=== PATIENT | male | born 1990 | race Hispanic/Latino ===

== ENCOUNTER 2016-11-17 21:18 | Inpatient (IN) | payer OTHER ==
[2016-11-17] MEDS ORDERED: PEPCID PO ONE (22:16)
[2016-11-17] MEDS ORDERED: BENADRYL PO ONE (22:16)
[2016-11-17] MEDS ORDERED: DELTASONE PO ONE (22:16)
[2016-11-17 22:42] LABS: Hematocrit 46.1 % (35.5-45.6); Hemoglobin 15.9 gm/dl (11.8-15.2); Mean Corpuscular HGB Conc 35 % (32-34); Mean Corpuscular Hemoglobin 30 pg (28-32); Mean Corpuscular Volume 86 fl (84-94); Platelet Count 321 K/mm3 (140-440); Red Cell Distribution Width 13.3 % (13.2-15.2); White Blood Count 12.3 K/mm3 (4.5-11.0)
[2016-11-17 22:58] LABS: Alanine Aminotransferase 22 units/L (7-56); Albumin 4.6 g/dL (3.9-5); Albumin/Globulin Ratio 1.6 %; Alkaline Phosphatase 65 units/L (35-129); Anion Gap 17 mmol/L; BUN/Creatinine Ratio 11.11; Blood Urea Nitrogen 10 mg/dL (9-20); Calcium 9.2 mg/dL (8.4-10.2); Carbon Dioxide 25 mmol/L (22-30); Chloride 100.8 mmol/L (98-107); Glucose 97 mg/dL (75-100); Potassium 3.8 mmol/L (3.6-5.0); Sodium 139 mmol/L (137-145); Total Protein 7.4 g/dL (6.3-8.2)
[2016-11-17 23:08] LABS: Erythrocyte Sedimentation Rate 2 mm/Hr (0-20)
[2016-11-18] MEDS ORDERED: TORADOL IV ONE (02:26)
[2016-11-18] MEDS ORDERED: NACL 0.9% 1000 ML 1,000 ML IV ONE (02:26)
[2016-11-18] MEDS ORDERED: CLEOCIN 900 MG/50 mL 900 MG/50 ML BAG IV ONE ×2 (02:27→04:55)
--- NOTE | 2016-11-18 03:58 | Emergency Department Report ---
ED General Adult HPI - General Chief complaint: Skin Rash Stated complaint: BUG BITE, CHEST TIGHTNESS Time Seen by Provider: 11/18/16 03:50 Source: patient Mode of arrival: Ambulatory Limitations: No Limitations - History of Present Illness Onset/Timin -: Sudden, days(s) Location: upper extremity Radiation: proximal Severity scale (0 -10): 3 Quality: burning, sharp Consistency: intermittent Improves with: none Worsens with: movement Associated Symptoms: fever/chills, malaise, rash. denies: confusion, cough, headaches, loss of appetite, nausea/vomiting, shortness of breath, syncope, weakness Treatments Prior to Arrival: none - Related Data Previous Rx's Medication Instructions Recorded Last Taken Type Clindamycin [Clindamycin CAP] 300 mg PO Q6H #40 capsule 11/18/16 Unknown Rx Metoclopramide [Reglan] 10 mg PO ACHS #28 tablet 11/18/16 Unknown Rx Naproxen [Naprosyn TAB] 500 mg PO BID PRN #60 tablet 11/18/16 Unknown Rx diphenhydrAMINE [Benadryl CAP] 25 mg PO Q6HR PRN #30 capsule 11/18/16 Unknown Rx predniSONE [Deltasone] 40 mg PO QDAY #5 tab 11/18/16 Unknown Rx Allergies Allergy/AdvReac Type Severity Reaction Status Date / Time codeine AdvReac Itching Verified 11/17/16 22:10 ED Review of Systems ROS: Stated complaint: BUG BITE, CHEST TIGHTNESS Other details as noted in HPI Constitutional: denies: chills, fever Eyes: denies: eye pain, eye discharge, vision change ENT: denies: ear pain, throat pain Respiratory: denies: cough, shortness of breath, wheezing Cardiovascular: denies: chest pain, palpitations Endocrine: no symptoms reported Gastrointestinal: denies: abdominal pain, nausea, diarrhea Genitourinary: denies: urgency, dysuria Musculoskeletal: denies: back pain, joint swelling, arthralgia Skin: rash (left forearm and upper arm ), pruritus. denies: change in color, change in hair/nails Neurological: denies: headache, weakness, paresthesias Psychiatric: denies: anxiety, depression Hematological/Lymphatic: denies: easy bleeding, easy bruising ED Past Medical Hx - Social History Smoking Status: Current Every Day Smoker Substance Use Type: None - Medications Home Medications: Home Medications Medication Instructions Recorded Confirmed Last Taken Type Clindamycin [Clindamycin CAP] 300 mg PO Q6H #40 capsule 11/18/16 Unknown Rx Metoclopramide [Reglan] 10 mg PO ACHS #28 tablet 11/18/16 Unknown Rx Naproxen [Naprosyn TAB] 500 mg PO BID PRN #60 tablet 11/18/16 Unknown Rx diphenhydrAMINE [Benadryl CAP] 25 mg PO Q6HR PRN #30 capsule 11/18/16 Unknown Rx predniSONE [Deltasone] 40 mg PO QDAY #5 tab 11/18/16 Unknown Rx ED Physical Exam - General Limitations: No Limitations General appearance: alert, in no apparent distress - Head Head exam: Present: atraumatic, normocephalic - Eye Eye exam: Present: normal appearance, PERRL, EOMI - ENT ENT exam: Present: mucous membranes moist - Neck Neck exam: Present: normal inspection - Respiratory Respiratory exam: Present: normal lung sounds bilaterally. Absent: respiratory distress - Cardiovascular Cardiovascular Exam: Present: regular rate, normal rhythm. Absent: systolic murmur, diastolic murmur, rubs, gallop - GI/Abdominal GI/Abdominal exam: Present: soft, normal bowel sounds - Rectal Rectal exam: Present: deferred - Expanded Upper Extremity Exam Left Shoulder Exam: Present: normal inspection Upper Arm exam: Present: full ROM, tenderness, erythema, other (rash erythema warm to touch). Absent: swelling, abrasion, laceration, ecchymosis, deformity Forearm Wrist exam: Present: full ROM, tenderness, erythema. Absent: swelling, abrasion, laceration, ecchymosis, deformity, crepidus, dislocation, tenderness over anatomical snuff box, pain with axial thumb loading Hand Wrist exam: Present: normal inspection, full ROM. Absent: tenderness, swelling, abrasion, laceration, ecchymosis, deformity, crepidus, dislocation, erythema, amputation, nail avulsion, subungual hematoma Neuro motor exam: Present: wrist extension intact, thumb opposition intact, thumb IP flexion intact, thumb adduction intact, fingers 2-5 abduction intact Neurosensory exam: Present: 2-point discrimination, radial nerve intact, ulnar nerve intact, median nerve intact Vascular: Present: Pallo, normal capillary refill, radial pulse, brachial pulse , ulnar pulse. Absent: vascular compromise, pulse deficit radial art, pulse deficit ulnar art, pulse deficit brachial art - Back Exam Back exam: Present: normal inspection - Neurological Exam Neurological exam: Present: alert, oriented X3 - Psychiatric Psychiatric exam: Present: normal affect, normal mood - Skin Skin exam: Present: warm, dry, rash, erythema, urticaria - Expanded Skin Exam Expanded Type of lesion: Present: rash Distribution of rash: LUE Description of rash: Present: size (2x6 cm irrregular), tenderness, erythematous. Absent: swelling, crusting, discharge, fluctuant, indurated ED Course Vital Signs 11/17/16 22:04 Temperature 98.2 F Pulse Rate 99 H Respiratory 18 Rate Blood Pressure 155/95 O2 Sat by Pulse 100 Oximetry ED Medical Decision Making - Lab Data Result diagrams: 11/17/16 22:19 11/17/16 22:19 Laboratory Tests 11/17/16 11/17/16 11/17/16 22:19 22:19 22:19 WBC 12.3 H RBC 5.40 H Hgb 15.9 H Hct 46.1 H MCV 86 MCH 30 MCHC 35 H RDW 13.3 Plt Count 321 ESR 2 Sodium 139 Potassium 3.8 Chloride 100.8 Carbon Dioxide 25 Anion Gap 17 BUN 10 Creatinine 0.9 Estimated GFR > 60 BUN/Creatinine Ratio 11.11 Glucose 97 Lactic Acid 1.00 Calcium 9.2 Total Bilirubin 0.50 AST 18 ALT 22 Alkaline Phosphatase 65 C-Reactive Protein 0.20 Total Protein 7.4 Albumin 4.6 Albumin/Globulin Ratio 1.6 - EKG Data EKG shows normal: sinus rhythm Rate: normal - EKG Data When compared to previous EKG there are: no significant change Interpretation: no acute changes - Medical Decision Making pt is a 26 y/o male who presents s/p spider bite to left forearm 3 days ago pt now complains of pain and erythema to same exam left f/o erythema warm to touch streaking is noted non weeping raised smooth , no abscess no fluctuance, rom intact no weakness no paresthesia labs noted : lactic acid 1.0, CRP 0.2, Sed rate: 2 WBC: 12.3 pt tx with clindamycin ivpb , steriods , benadryl , reglan, plan given sed rate, drp, lactic, mild wbc elevation , normal V/S will treat for infected spider bite / cellulitis, clindamycin, Benadryl , Reglan, prednisone. pt given strict instructions to return to clinic if symptoms worsen pt verbalized agreement and understanding of same. Critical care attestation.: If time is entered above; I have spent that time in minutes in the direct care of this critically ill patient, excluding procedure time. ED Disposition Clinical Impression: Infected insect bite Qualifiers: Encounter type: initial encounter Qualified Code(s): W57.XXXA - Bitten or stung by nonvenomous insect and other nonvenomous arthropods, initial encounter Disposition: TO HOME OR SELFCARE Is pt being admited?: No Does the pt Need Aspirin: No Condition: Good Instructions: Cellulitis (ED), Contact Dermatitis (ED) Prescriptions: Clindamycin [Clindamycin CAP] 300 mg PO Q6H #40 capsule diphenhydrAMINE [Benadryl CAP] 25 mg PO Q6HR PRN #30 capsule PRN Reason: Itching Metoclopramide [Reglan] 10 mg PO ACHS #28 tablet Naproxen [Naprosyn TAB] 500 mg PO BID PRN #60 tablet PRN Reason: Pain predniSONE [Deltasone] 40 mg PO QDAY #5 tab Referrals: PRIMARY CARE,MD [Primary Care Provider] - 3-5 Days Forms: Work/School Release Form(ED) Time of Disposition: 04:19
--- NOTE | 2016-11-18 04:34 | Emergency Department Report ---
- General Chief complaint: Skin Rash Stated complaint: BUG BITE, CHEST TIGHTNESS Time Seen by Provider: 11/18/16 03:50 Source: patient Mode of arrival: Ambulatory Limitations: No Limitations - History of Present Illness MD complaint: rash Onset/Timin -: Sudden, days(s) Tetanus Up to Date: yes Location: LUE Severity scale (0 -10): 5 Quality: burning, aching, sharp Consistency: constant Improves with: none Worsens with: palpation, movement Context: other ("I think I bite by spider") Associated symptoms: fever, chills, itching - Related Data Allergies Allergy/AdvReac Type Severity Reaction Status Date / Time codeine AdvReac Itching Verified 11/17/16 22:10 Abscess Boil HPI - HPI Chief Complaint: Skin Rash Stated Complaint: BUG BITE, CHEST TIGHTNESS Time Seen by Provider: 11/18/16 03:50 Duration: 2 Days Location: Upper Extremity Severity: Moderate History: Yes Fever, Yes Pain, Yes Insect Bite, No Purulent Drainage, No Numbness , No Foreign Body, No Previous History Allergies/Adverse Reactions: Allergies Allergy/AdvReac Type Severity Reaction Status Date / Time codeine AdvReac Itching Verified 11/17/16 22:10 ED Review of Systems ROS: Stated complaint: BUG BITE, CHEST TIGHTNESS Other details as noted in HPI Constitutional: denies: chills, fever Eyes: denies: eye pain, eye discharge, vision change ENT: denies: ear pain, throat pain Respiratory: denies: cough, shortness of breath, wheezing Cardiovascular: denies: chest pain, palpitations Endocrine: no symptoms reported Gastrointestinal: denies: abdominal pain, nausea, diarrhea Genitourinary: denies: urgency, dysuria Musculoskeletal: denies: back pain, joint swelling, arthralgia Skin: rash (left forearm and upper arm ), pruritus. denies: change in color, change in hair/nails Neurological: denies: headache, weakness, paresthesias Psychiatric: denies: anxiety, depression Hematological/Lymphatic: denies: easy bleeding, easy bruising ED Past Medical Hx - Social History Smoking Status: Current Every Day Smoker Substance Use Type: None ED Physical Exam - General Limitations: No Limitations General appearance: alert, in no apparent distress - Head Head exam: Present: atraumatic, normocephalic - Eye Eye exam: Present: normal appearance - ENT ENT exam: Present: mucous membranes moist - Neck Neck exam: Present: normal inspection - Respiratory Respiratory exam: Present: normal lung sounds bilaterally. Absent: respiratory distress - Cardiovascular Cardiovascular Exam: Present: regular rate, normal rhythm. Absent: systolic murmur, diastolic murmur, rubs, gallop - GI/Abdominal GI/Abdominal exam: Present: soft, normal bowel sounds - Rectal Rectal exam: Present: deferred - Extremities Exam Extremities exam: Present: normal inspection, full ROM, tenderness, normal capillary refill. Absent: pedal edema, joint swelling, calf tenderness - Expanded Upper Extremity Exam Left Shoulder Exam: Present: normal inspection Upper Arm exam: Present: full ROM, tenderness, swelling, erythema. Absent: abrasion, laceration, ecchymosis, deformity, crepidus, dislocation Elbow exam: Present: normal inspection Forearm Wrist exam: Present: tenderness, swelling, erythema. Absent: abrasion, laceration, deformity, crepidus, dislocation, tenderness over anatomical snuff box, pain with axial thumb loading Neuro motor exam: Present: wrist extension intact, thumb opposition intact, thumb IP flexion intact, thumb adduction intact, fingers 2-5 abduction intact Neurosensory exam: Present: 2-point discrimination, radial nerve intact, ulnar nerve intact, median nerve intact Vascular: Present: normal capillary refill, radial pulse, brachial pulse, ulnar pulse. Absent: vascular compromise, pulse deficit radial art, pulse deficit ulnar art, pulse deficit brachial art - Back Exam Back exam: Present: normal inspection, full ROM. Absent: tenderness - Neurological Exam Neurological exam: Present: alert, oriented X3, CN II-XII intact, normal gait, reflexes normal. Absent: motor sensory deficit - Psychiatric Psychiatric exam: Present: normal affect, normal mood - Skin Skin exam: Present: warm, dry, intact, normal color. Absent: rash ED Course Vital Signs 11/17/16 22:04 Temperature 98.2 F Pulse Rate 99 H Respiratory 18 Rate Blood Pressure 155/95 O2 Sat by Pulse 100 Oximetry ED Medical Decision Making - Lab Data Result diagrams: 11/17/16 22:19 11/17/16 22:19 Laboratory Tests 11/17/16 11/17/16 11/17/16 22:19 22:19 22:19 WBC 12.3 H RBC 5.40 H Hgb 15.9 H Hct 46.1 H MCV 86 MCH 30 MCHC 35 H RDW 13.3 Plt Count 321 ESR 2 Sodium 139 Potassium 3.8 Chloride 100.8 Carbon Dioxide 25 Anion Gap 17 BUN 10 Creatinine 0.9 Estimated GFR > 60 BUN/Creatinine Ratio 11.11 Glucose 97 Lactic Acid 1.00 Calcium 9.2 Total Bilirubin 0.50 AST 18 ALT 22 Alkaline Phosphatase 65 C-Reactive Protein 0.20 Total Protein 7.4 Albumin 4.6 Albumin/Globulin Ratio 1.6 11/18/16 11/18/16 11/18/16 03:01 03:01 03:01 WBC RBC Hgb Hct MCV MCH MCHC RDW Plt Count ESR 3 Sodium Potassium Chloride Carbon Dioxide Anion Gap BUN Creatinine Estimated GFR BUN/Creatinine Ratio Glucose Lactic Acid 2.60 H* Calcium Total Bilirubin AST ALT Alkaline Phosphatase C-Reactive Protein 0.20 Total Protein Albumin Albumin/Globulin Ratio - EKG Data EKG shows normal: sinus rhythm Rate: normal - EKG Data When compared to previous EKG there are: no significant change - Medical Decision Making pt endorse insect bite to left forearm 3 days ago present complaining of pain 5/ 10 fever itching swelling , puilses intact [employer]<3 sec bilat no crepitus rom intact, labs noted initial lactic acid 1.0 repeat 2.6 , consulted ED attending .plan admit to medicine Dx: Dottietis left forearm , pt handoff report to Dr. Hargrove , Admit to Med/Surg Dx Left Forearm Cellulitis , Clindamycin 900 mg ivbp q 8 hrs. dicussed same with patient , patient verbalized understanding and agreement with same. Critical care attestation.: If time is entered above; I have spent that time in minutes in the direct care of this critically ill patient, excluding procedure time. ED Disposition Clinical Impression: Cellulitis of left forearm Disposition: DC-01 TO HOME OR SELFCARE Is pt being admited?: Yes Does the pt Need Aspirin: No Condition: Good Instructions: Contact Dermatitis (ED), Cellulitis (ED) Time of Disposition: 04:47 (Admit DX Cellulitis Christopher Hargrove)
[2016-11-18] MEDS ORDERED: NACL 0.9% 1000 ML 1,000 ML IV SCH (07:00)
[2016-11-18] MEDS: CLEOCIN 900 MG/50 mL 900 MG/50 ML BAG IV SCH ×2 (10:17→14:16)
--- NOTE | 2016-11-18 11:16 | History and Physical Report ---
History of Present Illness Date of examination: 11/18/16 Date of admission: 11/18/16 04:47 Chief complaint: Left Arm bug bite History of present illness: A 26-year-old male presented to the ED with complaint of left arm swelling, redness, hot burning from a spider bite and chest tightness. Patient denies fever, nausea, vomiting, chest pains, abdominal pain. Patient reported bug bite to the left arm 3 days ago and the swelling, redness and pain of 6 out of 10 on scale 0/10 worsen yesterday and decided to come to the ER for treatment. Patient denies significant past medical history, except for smoking , alcohol and marijuana use. Patient also denied any surgeries. Past History Past Medical History: No medical history Past Surgical History: No surgical history Social history: , lives with family, smoking (1 pk per day), alcohol abuse (Whisky, every other day), full code, other (Marijuana on occasion). denies: prescription drug abuse, IV drug use Family history: cancer, hypertension, stroke Medications and Allergies Allergies Allergy/AdvReac Type Severity Reaction Status Date / Time codeine AdvReac Itching Verified 11/17/16 22:10 Active Meds: Active Medications Enoxaparin Sodium (Lovenox) 40 mg SUB-Q QDAY@2200 [facility] Clindamycin HCl (Cleocin 900 Mg/50 Ml) 900 mg in 50 mls @ 100 mls/hr IV Q8HR [facility] PRN Reason: Protocol Stop: 11/21/16 10:00 Last Admin: 11/18/16 10:17 Dose: 100 mls/hr Sodium Chloride (Nacl 0.9% 1000 Ml) 1,000 mls @ 150 mls/hr IV DIRECT [facility] Last Admin: 11/18/16 07:12 Dose: 150 mls/hr Review of Systems Constitutional: no weight loss, no weight gain, no chills, no fatigue Ears, nose, mouth and throat: no nasal congestion, no sinus pressure Cardiovascular: other (Chest tightness), no chest pain, no palpitations, no syncope Respiratory: no shortness of breath, no dyspnea on exertion, no congestion Gastrointestinal: no abdominal pain, no nausea, no vomiting, no diarrhea, no constipation Genitourinary Male: no dysuria, no hematuria Rectal: no incontinence Musculoskeletal: no low back pain, no muscle weakness, no muscle cramps Integumentary: redness, other (swelling to the left arm) Neurological: no head injury, no seizures, no syncope, no headaches Psychiatric: no anxiety, no suicidal ideation, no depression Endocrine: no fatigue Exam - Constitutional Vitals: Temp Pulse Resp BP Pulse Ox 98.6 F 81 20 148/87 99 11/18/16 08:00 11/18/16 08:00 11/18/16 08:00 11/18/16 08:00 11/18/16 08:00 General appearance: Present: no acute distress, well-nourished - EENT Eyes: Present: PERRL ENT: hearing intact, clear oral mucosa - Neck Neck: Present: supple, normal ROM - Respiratory Respiratory effort: normal Respiratory: bilateral: CTA - Cardiovascular Heart rate: 110 Rhythm: regular Heart Sounds: Present: S1 & S2. Absent: rub, click - Extremities Extremities: pulses symmetrical, No edema Peripheral Pulses: within normal limits - Abdominal General gastrointestinal: Present: soft, non-tender, non-distended, normal bowel sounds Male genitourinary: Present: normal - Integumentary Integumentary: Present: clear, erythema (Lower left arm) - Musculoskeletal Musculoskeletal: gait normal, strength equal bilaterally - Psychiatric Psychiatric: appropriate mood/affect, intact judgment & insight - Neurologic Neurologic: CNII-XII intact, moves all extremities - Allied Health Allied health notes reviewed: nursing Results - Labs CBC & Chem 7: 11/17/16 22:19 11/17/16 22:19 Labs: Laboratory Last Values WBC 12.3 K/mm3 (4.5-11.0) H 11/17/16 22:19 RBC 5.40 M/mm3 (3.65-5.03) H 11/17/16 22:19 Hgb 15.9 gm/dl (11.8-15.2) H 11/17/16 22:19 Hct 46.1 % (35.5-45.6) H 11/17/16 22:19 MCV 86 fl (84-94) 11/17/16 22:19 MCH 30 pg (28-32) 11/17/16 22:19 MCHC 35 % (32-34) H 11/17/16 22:19 RDW 13.3 % (13.2-15.2) 11/17/16 22:19 Plt Count 321 K/mm3 (140-440) 11/17/16 22:19 ESR 3 mm/Hr (0-20) 11/18/16 03:01 Sodium 139 mmol/L (137-145) 11/17/16 22:19 Potassium 3.8 mmol/L (3.6-5.0) 11/17/16 22:19 Chloride 100.8 mmol/L (98-107) 11/17/16 22:19 Carbon Dioxide 25 mmol/L (22-30) 11/17/16 22:19 Anion Gap 17 mmol/L 11/17/16 22:19 BUN 10 mg/dL (9-20) 11/17/16 22:19 Creatinine 0.9 mg/dL (0.8-1.5) 11/17/16 22:19 Estimated GFR > 60 ml/min 11/17/16 22:19 BUN/Creatinine Ratio 11.11 % 11/17/16 22:19 Glucose 97 mg/dL (75-100) 11/17/16 22:19 Lactic Acid 2.60 mmol/L (0.7-2.0) H* 11/18/16 03:01 Calcium 9.2 mg/dL (8.4-10.2) 11/17/16 22:19 Total Bilirubin 0.50 mg/dL (0.1-1.2) 11/17/16 22:19 AST 18 units/L (5-40) 11/17/16 22:19 ALT 22 units/L (7-56) 11/17/16 22:19 Alkaline Phosphatase 65 units/L (35-129) 11/17/16 22:19 C-Reactive Protein 0.20 mg/dL (0.00-1.30) 11/18/16 03:01 Total Protein 7.4 g/dL (6.3-8.2) 11/17/16 22:19 Albumin 4.6 g/dL (3.9-5) 11/17/16 22:19 Albumin/Globulin Ratio 1.6 % 11/17/16 22:19 Assessment and Plan Assessment and plan: A 26-year-old male presented to the ED with complaint of left arm swelling, redness, hot from a spider bite and chest tightness. Patient denies fever, nausea, vomiting, chest pains, abdominal pain. Patient reported bug bite to the left arm 3 days ago and the swelling, redness and pain worsen yesterday and decided to come to the ER for treatment. Patient denies significant past medical history, except for smoking, alcohol and marijuana use. Patient also denied any surgeries. On exam patient is alert oriented 3, verbalized he is feeling better and wants to go home if possible to be discharged today on oral antibiotics. Patient remained sinus tach heart rate 100-117. Positive lateral radial pulses noted and bilateral positive pedal pulses noted. Sepsis 2/2 cellulitis - lukocytosis and tachycardia - Will manage according to sepsis protocol using IV antibiotics and fluid - Bllod culture pending -Cellulitis to the left arm-due to spider bite- antibiotics , IV fluids -Leukocytosis-due to infectious process-treating underlying cause patient on antibiotics -DVT prophylaxis-SCDs ordered Advance Directives: No (Full Code) VTE prophylaxis?: Mechanical (Pt ambulatory) Plan of care discussed with patient/family: Yes
[2016-11-18 16:05] VITALS: BP 129/87
[2016-11-18] MEDS ORDERED: LOVENOX SUB-Q SCH (22:00)
--- NOTE | 2016-11-19 13:46 | Discharge Summary ---
Providers - Providers Date of Admission: 11/18/16 04:47 Date of discharge: 11/19/16 Attending physician: MOLINA DANG MD Primary care physician: WALL ATTENDANT Hospitalization Reason for admission: Sepsis, cellulitis secondary to insect bite Condition: Good Hospital course: A 26-year-old male presented to the ED with complaint of left arm swelling, redness, hot burning from a spider bite and chest tightness. Patient denies fever, nausea, vomiting, chest pains, abdominal pain. Patient reported bug bite to the left arm 3 days ago and the swelling, redness and pain of 6 out of 10 on scale 0/10 worsen yesterday and decided to come to the ER for treatment. Patient denies significant past medical history, except for smoking , alcohol and marijuana use. Patient also denied any surgeries. Patient was admitted to the floor because of management of sepsis, cellulitis secondary to insect bite. The patient was started on IV clindamycin. When I evaluated the patient after I discussed with the importance of being admitted and managed he agreed to stay in the hospital but later he signed AMA and went home. Disposition: DC-07 LEFT AGAINST MED ADVICE Time spent for discharge: 25 minutes Core Measure Documentation - Palliative Care Palliative Care/ Comfort Measures: Not Applicable - Core Measures Any of the following diagnoses?: none Exam - Physical Exam Narrative exam: I didn't examine him at the time of discharge. - Constitutional Vitals: Temp Pulse Resp BP Pulse Ox 98.7 F 93 H 18 129/87 98 11/18/16 16:00 11/18/16 16:00 11/18/16 16:00 11/18/16 16:00 11/18/16 16:00 Plan Activity: no restrictions Weight Bearing Status: Full Weight Bearing Diet: regular
== END 2016-11-18 17:00 | disposition left against medical advice (07) | DRG 872 ==
LOC: ED 21:18 → 3A 11-18 04:47
PROVIDERS: ADMIT Internal Medicine; ATTEND Internal Medicine
DX: A41.9 Sepsis, unspecified organism (principal); L03.114 Cellulitis of left upper limb; W57.XXXA Bitten or stung by nonvenomous insect and other nonvenomous arthropods, initial encounter; F17.210 Nicotine dependence, cigarettes, uncomplicated; F10.10 Alcohol abuse, uncomplicated; Z80.9 Family history of malignant neoplasm, unspecified; Z82.3 Family history of stroke; Z82.49 Family history of ischemic heart disease and other diseases of the circulatory system; Z88.5 Allergy status to narcotic agent; F12.90 Cannabis use, unspecified, uncomplicated; Z53.21 Procedure and treatment not carried out due to patient leaving prior to being seen by health care provider
CPT/HCPCS: 36415; 80053; 82140; 85027; 85652; 86140; 87040; 93005; 93010; J1885; J7030; J7512

== ENCOUNTER 2018-09-13 01:33 | Emergency (ER) | payer OTHER ==
[2018-09-13 01:39] VITALS: BP 144/103
[2018-09-13] MEDS ORDERED: NACL 0.9% 500 ML IR ONE (04:15)
[2018-09-13] MEDS ORDERED: NACL 0.9% IR ONE (04:15)
--- NOTE | 2018-09-13 04:32 | Event Note ---
Date: 09/13/18 Patient seen and evaluated in conjunction with the physician licensed occupational therapy assistant. Has a an entrance wounds to the posterior superior aspect of the left ear, which appears to have a subsequent exit wound through the inferior anterior aspect of the left lobule, and a tract that travels through the lateral aspect of the cheek. Patient speaking in complete sentences, is clinically sober, and does not appear to have any other injuries on the remainder of his primary and/or secondary survey. Patient was extensively counseled on need for copious irrigation, laceration repair, and application of a pressure dressing. The patient is refusing laceration repair at this time. The patient is clinically sober at this time, alert and oriented, appears to have decision-making capacity, and is able to articulate risks and his own words. Specifically, the risks of infection, loss of the ear, cosmetic deformity, poor cosmetic outcome were discussed with the patient, who verbalized understanding, and was able to articulate these in his own words. He indicates that he will closely follow up, and will be discharged with antibiotic therapy. This conversation is witnessed by physician licensed occupational therapy assistant Queta Doran
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
== END 2018-09-13 05:15 | disposition left against medical advice (07) ==
LOC: ED 01:33
DX: S01.312A Laceration without foreign body of left ear, initial encounter (principal); S01.412A Laceration without foreign body of left cheek and temporomandibular area, initial encounter; S01.80XA Unspecified open wound of other part of head, initial encounter; F17.200 Nicotine dependence, unspecified, uncomplicated; Z88.5 Allergy status to narcotic agent; W34.00XA Accidental discharge from unspecified firearms or gun, initial encounter; Y93.89 Activity, other specified; Y92.89 Other specified places as the place of occurrence of the external cause; Y99.8 Other external cause status
CPT/HCPCS: 70450